=== PATIENT | male | born 1965 | race Caucasian/White ===

== ENCOUNTER 2016-09-14 15:39 | Day surgery (SDC) | payer MEDICAID, OTHER ==
[~2016-09-14 15:39] MED LIST: EPINEPHRINE INJ 1 MG/10 ML DISP.SYRIN ONE; FLUMAZENIL INJ 0.5 MG/5 ML VIAL IV ONE; GLUCAGON,HUMAN RECOMB 1 MG INJ ONE; NALOXONE HCL INJ/PF 0.4 MG/1 ML SDV ONE
[2016-09-14] MEDS: MIDAZOLAM 2 MG/2 ML INJ ONE ×2 (17:00→17:07)
[2016-09-14] MEDS: FENTANYL CITRATE INJ/PF 100 MCG/2 ML AMPUL ONE ×2 (17:02→17:04)
--- NOTE | 2016-09-14 17:30 | Operative Report ---
Operative Report DATE OF SURGERY: 09/14/16 Operative Report: Pre-op diagnosis: Colon cancer screening Post-op diagnosis: Sigmoid colon polyp and internal hemorrhoids Surgery: Colonoscopy with polypectomy Medications: Versed 3mg, Fentanyl 100mcg IV push Tissue removed: Colon polyp Procedure: After informed consent obtained from patient, conscious sedation was achieved. A digital rectal examination was performed and this was unremarkable. The colonoscope was inserted into the rectum and advanced to the cecum. The appendiceal orifice and the terminal ileum were both identified. The mucosa was examined into details as the colonoscope was slowly pulled out of the patient. The endoscope was retroflexed in the rectum. Patient tolerated the procedure well. Findings Terminal ileum: Cecum: Normal Ascending colon: Normal Transverse colon: Normal Descending colon: Normal Sigmoid colon: 4 mm polyp removed with cold snare Rectum: Normal except for internal hemorrhoids Plan: Await pathology and repeat colonoscopy in 5 years if polyp is adenomatous OPERATION: .
[2016-09-14 18:31] VITALS: BP 129/73
== END 2016-09-14 18:25 | disposition home or self-care (01) ==
LOC: END 15:39
PROVIDERS: ATTEND Internal Medicine Gastroenterology
PROC: 0DBN8ZX Excision of Sigmoid Colon, Via Natural or Artificial Opening Endoscopic, Diagnostic (ICD-10-PCS; principal; 2016-09-14 16:15)
DX: Z12.11 Encounter for screening for malignant neoplasm of colon (principal); D12.5 Benign neoplasm of sigmoid colon; K64.8 Other hemorrhoids; E66.01 Morbid (severe) obesity due to excess calories; Z79.1 Long term (current) use of non-steroidal anti-inflammatories (NSAID); Z68.44 Body mass index [BMI] 60.0-69.9, adult
CPT/HCPCS: 45385; 88305 ×2; J2250; J3010; J0171; J1610; J2310; J3490

== ENCOUNTER 2018-03-07 14:01 | Emergency (ER) | payer SELFPAY ==
[2018-03-07] MEDS ORDERED: CEPHALEXIN 500 MG CAPSULE PO ONE (14:58)
[2018-03-07] MEDS ORDERED: NAPROXEN 250 MG TABLET PO ONE (15:01)
--- NOTE | 2018-03-07 15:01 | ER Document Report ---
HPI - HPI Patient complains to provider of: Left hand redness Time Seen by Provider: 03/07/18 14:58 Onset: Other - 3 days Onset/Duration: Worse Quality of pain: Achy Pain Level: 3 Context: Patient complains of left hand redness and tenderness over the past several days. Patient states that he developed redness near the site of a previous IV. Patient states that he was recently discharged from the hospital and had an IV in his left hand. Patient denies any fever. Associated Symptoms: Other - Left hand pain and redness. denies: Fever Exacerbated by: Denies Relieved by: Denies Similar symptoms previously: No Recently seen / treated by doctor: No - ROS ROS below otherwise negative: Yes Systems Reviewed and Negative: Yes All other systems reviewed and negative - CONSTITUTIONAL Constitutional: DENIES: Fever, Chills - GASTROINTESTINAL Gastrointestinal: DENIES: Nausea - MUSCULOSKELETAL Musculoskeletal: REPORTS: Extremity pain, Swelling - DERM Skin Color: Erythema Skin Problems: None Past Medical History - General Information source: Patient - Social History Smoking Status: Never Smoker Frequency of alcohol use: None Drug Abuse: None Lives with: Family Family History: Reviewed & Not Pertinent - Past Medical History Cardiac Medical History: Reports: Hx Atrial Fibrillation, Hx Congestive Heart Failure Musculoskeletal Medical History: Denies Hx Arthritis Surgical Hx: Negative - Immunizations Hx Diphtheria, Pertussis, Tetanus Vaccination: Yes Vertical Provider Document - CONSTITUTIONAL Agree With Documented VS: Yes Exam Limitations: No Limitations General Appearance: WD/WN, No Apparent Distress, Obese - morbidly - INFECTION CONTROL TRAVEL OUTSIDE OF THE [place] IN LAST 30 DAYS: No - HEENT HEENT: Atraumatic, Normocephalic - NECK Neck: Normal Inspection - RESPIRATORY Respiratory: Breath Sounds Normal, No Respiratory Distress - CARDIOVASCULAR Cardiovascular: Regular Rate, Regular Rhythm Pulses: Normal: Radial - BACK Back: Normal Inspection - MUSCULOSKELETAL/EXTREMETIES Musculoskeletal/Extremeties: MAEW, FROM, Tender - left hand, Edema - 1+ - NEURO Level of Consciousness: Awake, Alert, Appropriate Motor/Sensory: No Motor Deficit - DERM Integumentary: Warm, Dry. negative: Abscess Notes: Erythema dorsal aspect of left hand that is just distal from vena puncture site, no concern for abscess. No tenosynovitis Course - Re-evaluation Re-evalutation: 03/07/18 Patient presents with left hand redness concerning for developing cellulitis. No concern for abscess or tenosynovitis. Patient nontoxic in appearance. We will treat with cephalexin at this time, good return precautions given. - Vital Signs Vital signs: Temp Pulse Resp BP Pulse Ox 97.4 F 75 19 125/68 93 03/07/18 14:09 03/07/18 14:09 03/07/18 14:09 03/07/18 14:09 03/07/18 14:09 Discharge - Discharge Clinical Impression: Cellulitis Qualifiers: Site of cellulitis: extremity Site of cellulitis of extremity: upper extremity Laterality: left Qualified Code(s): L03.114 - Cellulitis of left upper limb Condition: Stable Disposition: HOME, SELF-CARE Instructions: Cellulitis ([facility]), Cephalexin ([facility]) Additional Instructions: Return immediately for any new or worsening symptoms Followup with your primary care provider, call tomorrow to make a followup appointment Prescriptions: Cephalexin Monohydrate [Keflex 500 mg Capsule] 500 mg PO Q6H 7 Days capsule
[2018-03-07 16:03] VITALS: BP 121/78
== END 2018-03-07 16:08 | disposition home or self-care (01) ==
LOC: ER 14:01
DX: L03.114 Cellulitis of left upper limb (principal)
CPT/HCPCS: 99283

== ENCOUNTER 2019-06-19 08:03 | Emergency (ER) | payer MEDICARE, MEDICAID ==
--- NOTE | 2019-06-19 08:33 | ER Document Report ---
HPI - HPI Time Seen by Provider: 06/19/19 08:20 Pain Level: 5 Context: Patient is a 54-year-old male who presents to the emergency department with a chief complaint of left arm pain. States that the pain is on the posterior aspect of his left arm at his triceps area. Patient was seen by his primary care provider and was placed on methocarbamol, but has had little relief of his symptoms. Patient states that the methocarbamol has not worked for him. He states that it started about 3 weeks ago. 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 - CONSTITUTIONAL Constitutional: DENIES: Fever, Chills - EENT EENT: DENIES: Sore Throat, Ear Pain - NEURO Neurology: DENIES: Headache, Weakness, Vision blurred, Dizzinesss / Vertigo - CARDIOVASCULAR Cardiovascular: DENIES: Chest pain - RESPIRATORY Respiratory: DENIES: Trouble Breathing, Coughing - GASTROINTESTINAL Gastrointestinal: DENIES: Abdominal Pain - MUSCULOSKELETAL Musculoskeletal: REPORTS: Extremity pain - l posterior ARM. DENIES: Back Pain, Neck Pain, Swelling - DERM Skin Color: Normal Skin Problems: None Past Medical History - Social History Smoking Status: Never Smoker Chew tobacco use (# tins/day): No Frequency of alcohol use: None Drug Abuse: None Family History: Reviewed & Not Pertinent Patient has suicidal ideation: No Patient has homicidal ideation: No - Past Medical History Cardiac Medical History: Reports: Hx Atrial Fibrillation, Hx Congestive Heart Failure Denies: Hx Coronary Artery Disease, Hx Heart Attack, Hx Hypertension Pulmonary Medical History: Denies: Hx Asthma, Hx Bronchitis, Hx COPD, Hx Pneumonia Neurological Medical History: Denies: Hx Cerebrovascular Accident, Hx Seizures Renal/ Medical History: Denies: Hx Peritoneal Dialysis Musculoskeletal Medical History: Denies Hx Arthritis - Immunizations Hx Diphtheria, Pertussis, Tetanus Vaccination: Yes Vertical Provider Document - CONSTITUTIONAL Agree With Documented VS: Yes Exam Limitations: No Limitations General Appearance: No Apparent Distress, Obese - INFECTION CONTROL TRAVEL OUTSIDE OF THE [place] IN LAST 30 DAYS: No - HEENT HEENT: Atraumatic, Normocephalic, PERRLA - NECK Neck: Normal Inspection - RESPIRATORY Respiratory: Breath Sounds Normal, No Respiratory Distress - CARDIOVASCULAR Cardiovascular: Regular Rate, Regular Rhythm Pulses: Normal: Radial - MUSCULOSKELETAL/EXTREMETIES Musculoskeletal/Extremeties: FROM, Tender - left posterior arm, No Edema - NEURO Level of Consciousness: Awake, Alert, Appropriate - DERM Integumentary: Warm, Dry, No Rash Course - Re-evaluation Re-evalutation: 06/19/19 Patient states that he feels better after receiving Flexeril. X-rays and venous Doppler studies are negative for any acute findings. Patient will be sent home with Flexeril. He will follow-up with his primary care provider. A very low suspicion for any life-threatening etiology at this time. Patient is able to move all extremities with no difficulty. I have very low suspicion for ACS because of the duration of presentation. Patient denies any chest pain. Capillary refill less than 3 seconds. Radial pulse 2+. Follow-up precautions were given. Verbal discharge instructions were given to the patient. They verbalized understanding. They are stable for discharge. - Vital Signs Vital signs: Temp Pulse Resp BP Pulse Ox 98.2 F 79 18 152/79 H 96 06/19/19 08:11 06/19/19 08:11 06/19/19 08:11 06/19/19 08:11 06/19/19 08:11 Discharge - Discharge Clinical Impression: Left arm pain Condition: Stable Disposition: HOME, SELF-CARE Additional Instructions: You are seen today in the emergency department for left arm pain. You do not have a blood clot. Your x-rays were normal. Your pain is most likely due to muscle pain. Please take Flexeril as prescribed. Please follow-up with your primary care provider in regards to this visit. See if you can get physical therapy. Prescriptions: Cyclobenzaprine HCl [Flexeril 10 mg Tablet] 10 mg PO TIDP PRN #90 tab PRN Reason: Referrals: IZAIAH CONNOR PA-C [Primary Care Provider] - Follow up in 3-5 days
[2019-06-19] MEDS ORDERED: CYCLOBENZAPRINE HCL 10 MG TABLET PO ONE (09:04)
--- NOTE | 2019-06-19 09:08 | RADIOLOGY REPORT (SQ) ---
EXAM DESCRIPTION: HUMERUS LEFT IMAGES COMPLETED DATE/TIME: 06/19/2019 8:54 am REASON FOR STUDY: left arm pain COMPARISON: None. NUMBER OF VIEWS: Two views. TECHNIQUE: Two radiographic images were acquired of the left humerus to include elbow and shoulder i n at least one projection. LIMITATIONS: None. FINDINGS: MINERALIZATION: Normal. BONES: No acute fracture or dislocation. No worrisome bone lesions. SOFT TISSUES: No obvious swelling or foreign body. OTHER: No other significant finding. IMPRESSION: NEGATIVE STUDY OF THE LEFT HUMERUS. NO RADIOGRAPHIC EVIDENCE OF ACUTE INJURY. TECHNICAL DOCUMENTATION: JOB ID: [id number] 2010 [employer]- All Rights Reserved Reading location - IP/workstation name: [email or web address]
--- NOTE | 2019-06-19 09:09 | RADIOLOGY REPORT (SQ) ---
EXAM DESCRIPTION: SHOULDER LEFT 2 OR MORE VIEWS IMAGES COMPLETED DATE/TIME: 06/19/2019 8:54 am REASON FOR STUDY: left arm pain COMPARISON: None. NUMBER OF VIEWS: Three views. TECHNIQUE: Internal rotation, external rotation, and Y view images acquired of the left shoulder. LIMITATIONS: None. FINDINGS: MINERALIZATION: Normal. BONES: No acute fracture. No worrisome bone lesions. JOINTS: No dislocation. VISUALIZED LUNGS AND RIBS: No pneumothorax. No rib fracture. SOFT TISSUES: No radiopaque foreign body. OTHER: No other significant finding. IMPRESSION: NEGATIVE STUDY OF THE LEFT SHOULDER. NO RADIOGRAPHIC EVIDENCE OF ACUTE INJURY. TECHNICAL DOCUMENTATION: JOB ID: [id number] 2010 [employer]- All Rights Reserved Reading location - IP/workstation name: [email or web address]
[2019-06-19 12:15] VITALS: BP 143/75
--- NOTE | 2019-06-19 13:30 | RADIOLOGY REPORT (SQ) ---
EXAM DESCRIPTION: VENOUS UNILATERAL UPPER IMAGES COMPLETED DATE/TIME: 06/19/2019 1:20 pm REASON FOR STUDY: Left upper arm pain; hx DVT COMPARISON: None. TECHNIQUE: Dynamic and static shultz scale and color images acquired of the left arm venous system. Se lected spectral images acquired with additional compression and augmentation maneuvers. The contralat eral subclavian vein and internal jugular vein were also imaged. Images stored on PACS. LIMITATIONS: None. FINDINGS: INTERNAL JUGULAR VEIN: Normal phasicity, compression, augmentation. No visualized echogeni c material on shultz scale. No defects on color images. Comparison opposite side normal. SUBCLAVIAN VEIN: Normal compression, augmentation. No visualized echogenic material on shultz scale. No defects on color images. AXILLARY VEIN: Normal compression, augmentation. No visualized echogenic material on shultz scale. No d efects on color images. BRACHIAL VEIN: Normal compression, augmentation. No visualized echogenic material on shultz scale. No d efects on color images. BASILIC VEIN: Normal compression, augmentation. No visualized echogenic material on shultz scale. No de fects on color images. CEPHALIC VEIN: Normal compression, augmentation. No visualized echogenic material on shultz scale. No d efects on color images. OTHER: No other significant finding. CONTRALATERAL SUBCLAVIAN VEIN AND INTERNAL JUGULAR VEIN: Normal phasicity, compression and augmentation. No visualized echogenic material on shultz scale. No de fects on color images. IMPRESSION: NO EVIDENCE DVT OR SVT IN THE LEFT ARM. TECHNICAL DOCUMENTATION: JOB ID: [id number] 2010 [employer]- All Rights Reserved Reading location - IP/workstation name: [email or web address]
== END 2019-06-19 12:13 | disposition home or self-care (01) ==
LOC: ER 08:03
DX: M79.622 Pain in left upper arm (principal); I48.91 Unspecified atrial fibrillation; Z79.01 Long term (current) use of anticoagulants; Z86.718 Personal history of other venous thrombosis and embolism
CPT/HCPCS: 99284; 93971; 73060; 73030; A9270

== ENCOUNTER 2019-09-16 22:20 | Emergency (ER) | payer MEDICARE, MEDICAID ==
[2019-09-16 22:29] VITALS: BP 150/63
[2019-09-16] MEDS ORDERED: LIDOCAINE 1.5%/EPINEPHRINE INJ-PF 30 ML SDV INJ ONE (22:56)
[2019-09-16] MEDS ORDERED: LIDOCAINE 1%/EPINEPHRINE INJ 20 ML VIAL ONE (23:11)
--- NOTE | 2019-09-16 23:29 | ER Document Report ---
ED General - General Chief Complaint: Foreign Body Stated Complaint: SINGLE FISH HOOK LEFT Primary Care Provider: IZAIAH CONNOR PA-C [Primary Care Provider] - Follow up as needed Notes: Patient is a 54-year-old male with no reported past medical history presents emergency department the chief complaint of fishhook in the left plantar heel. States he was walking barefoot accidentally stepped on it. He is unsure if he was used. States his tetanus was updated within the last 5 years. States the hook seems very superficial but his could not pull out. He denies any numbness, tingling or weakness. Denies any uncontrollable bleeding. TRAVEL OUTSIDE OF THE [place] IN LAST 30 DAYS: No - Related Data Allergies/Adverse Reactions: No Known Allergies Allergy (Verified 06/19/19 08:12) Past Medical History - Social History Smoking Status: Unknown if Ever Smoked Family History: Reviewed & Not Pertinent - Past Medical History Cardiac Medical History: Reports: Hx Atrial Fibrillation, Hx Congestive Heart Failure Denies: Hx Coronary Artery Disease, Hx Heart Attack, Hx Hypertension Pulmonary Medical History: Denies: Hx Asthma, Hx Bronchitis, Hx COPD, Hx Pneumonia Neurological Medical History: Denies: Hx Cerebrovascular Accident, Hx Seizures Renal/ Medical History: Denies: Hx Peritoneal Dialysis Musculoskeletal Medical History: Denies Hx Arthritis - Immunizations Hx Diphtheria, Pertussis, Tetanus Vaccination: Yes Review of Systems - Review of Systems Notes: Per HPI otherwise negative Physical Exam - Vital signs Vitals: Temp Pulse Resp BP Pulse Ox 98.4 F 88 20 150/63 H 98 09/16/19 22:28 09/16/19 22:28 09/16/19 22:28 09/16/19 22:28 09/16/19 22:28 - General General appearance: Appears well, Alert In distress: None - Respiratory Respiratory status: No respiratory distress Chest status: Nontender Breath sounds: Normal Chest palpation: Normal - Cardiovascular Rhythm: Regular Heart sounds: Normal auscultation - Neurological Neuro grossly intact: Yes Cognition: Normal Orientation: AAOx4 - Psychological Associated symptoms: Normal affect, Normal mood - Skin Skin Color: Other - Red small fishhook superficially lodged just past the edna epidermis to the left lateral plantar heel. Clean appearing. Not red or swollen. No drainage. Normal sensation is intact. Gait limited by pain, baseline with 4-prong walker. Course - Re-evaluation Re-evalutation: 09/16/19 23:27 The site was cleansed copiously with chlorhexidine. Lidocaine 1% with epin ephrine was infiltrated the site of puncture, local anesthesia was achieved. Using curved hemostats the fishhook was carefully reversed the edna popping free very easily. It was successfully removed and intact. No bleeding status post. Patient tolerated well. Covered with a bandage. Patient replaced on Keflex prophylactically. His tetanus is up-to-date. Counseled him regarding wound care measures and monitoring. Advised he return here or any ER immediately with any new, persistent or worsening symptoms. He verbalized understood and agreed. 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 - Vital Signs Vital signs: Temp Pulse Resp BP Pulse Ox 98.4 F 88 20 150/63 H 98 09/16/19 22:28 09/16/19 22:28 09/16/19 22:28 09/16/19 22:28 09/16/19 22:28 Discharge - Discharge Clinical Impression: fish hook in left foot Condition: Stable Disposition: HOME, SELF-CARE Instructions: Removal of Subcutaneous Foreign Object ([facility]) Additional Instructions: Follow-up with your regular doctor in 2 to 3 days for reevaluation. Return here or any ER immediately with any new, persistent or worsening symptoms. Prescriptions: Cephalexin Monohydrate [Keflex 500 mg Capsule] 500 mg PO BID 7 Days #14 capsule Referrals: IZAIAH CONNOR PA-C [Primary Care Provider] - Follow up as needed
== END 2019-09-16 23:31 | disposition home or self-care (01) ==
LOC: ER 22:20
DX: S91.342A Puncture wound with foreign body, left foot, initial encounter (principal); W22.09XA Striking against other stationary object, initial encounter; I48.91 Unspecified atrial fibrillation; I50.9 Heart failure, unspecified
CPT/HCPCS: 99283; J3490